=== PATIENT | male | born 1955 | race Caucasian/White ===

== ENCOUNTER 2017-05-20 14:41 | Inpatient (IN) | payer OTHER ==
[~2017-05-20] VITALS: Ht 180.3 cm; Wt 76.2 kg
[2017-05-20] MEDS ORDERED: ATENOLOL50 MG (15:09)
== END 2017-06-14 13:33 | disposition home or self-care (01) | DRG 653 ==
LOC: ER 14:41 → ICU 20:21 → SURG 20:21 → SEC-K 20:21 → SURG 05-21 09:50 → O/R 05-23 19:15 → ICU 05-24 10:22 → SURG 05-26 20:47
PROVIDERS: Urology
PROC: 30233N1 Transfusion of Nonautologous Red Blood Cells into Peripheral Vein, Percutaneous Approach (ICD-10-PCS; 2017-05-20)
PROC: 0VT00ZZ Resection of Prostate, Open Approach (ICD-10-PCS; 2017-05-23)
PROC: 07TC0ZZ Resection of Pelvis Lymphatic, Open Approach (ICD-10-PCS; 2017-05-23)
PROC: 0T1 Urinary System, Bypass (ICD-10-PCS; 2017-05-23)
PROC: 0DTJ0ZZ Resection of Appendix, Open Approach (ICD-10-PCS; 2017-05-23)
PROC: 0TB70ZZ Excision of Left Ureter, Open Approach (ICD-10-PCS; 2017-05-23)
PROC: 0TB60ZZ Excision of Right Ureter, Open Approach (ICD-10-PCS; 2017-05-23)
PROC: 4A033R1 Measurement of Arterial Saturation, Peripheral, Percutaneous Approach (ICD-10-PCS; 2017-05-23)
PROC: 3E0F7GC Introduction of Other Therapeutic Substance into Respiratory Tract, Via Natural or Artificial Opening (ICD-10-PCS; 2017-05-23)
PROC: 0TRB07Z Replacement of Bladder with Autologous Tissue Substitute, Open Approach (ICD-10-PCS; principal; 2017-05-23 13:45)
PROC: 5A1935Z Respiratory Ventilation, Less than 24 Consecutive Hours (ICD-10-PCS; 2017-05-24)
PROC: 0BH17EZ Insertion of Endotracheal Airway into Trachea, Via Natural or Artificial Opening (ICD-10-PCS; 2017-05-24)
PROC: BW24Y0Z Computerized Tomography (CT Scan) of Chest and Abdomen using Other Contrast, Unenhanced and Enhanced (ICD-10-PCS; 2017-05-25)
PROC: B246ZZZ Ultrasonography of Right and Left Heart (ICD-10-PCS; 2017-05-26)
PROC: BW21Y0Z Computerized Tomography (CT Scan) of Abdomen and Pelvis using Other Contrast, Unenhanced and Enhanced (ICD-10-PCS; 2017-05-31)
PROC: 3E0436Z Introduction of Nutritional Substance into Central Vein, Percutaneous Approach (ICD-10-PCS; 2017-06-02)
PROC: 02HV33Z Insertion of Infusion Device into Superior Vena Cava, Percutaneous Approach (ICD-10-PCS; 2017-06-02)
PROC: BW2GY0Z Computerized Tomography (CT Scan) of Pelvic Region using Other Contrast, Unenhanced and Enhanced (ICD-10-PCS; 2017-06-08)
DX: C67.3 Malignant neoplasm of anterior wall of bladder (principal); J95.821 Acute postprocedural respiratory failure; D62 Acute posthemorrhagic anemia; C77.5 Secondary and unspecified malignant neoplasm of intrapelvic lymph nodes; K35.89 Other acute appendicitis; K91.31 Postprocedural partial intestinal obstruction; N13.39 Other hydronephrosis; R31.0 Gross hematuria; F17.210 Nicotine dependence, cigarettes, uncomplicated; J44.9 Chronic obstructive pulmonary disease, unspecified; I10 Essential (primary) hypertension; Z78.1 Physical restraint status

== ENCOUNTER → 2017-12-26 | Outpatient (CLI) | payer OTHER ==
[~2017-12-26] MED LIST: ATENOLOL50 MG
== END | disposition home or self-care (01) ==
LOC: TOM 14:51 → LAB 14:51 → TOM 12-29 08:45
DX: C67.3 Malignant neoplasm of anterior wall of bladder (principal); Z51.81 Encounter for therapeutic drug level monitoring

== ENCOUNTER 2017-12-29 09:13 | Outpatient (CLI) | payer OTHER | END 2017-12-29 09:38 | disposition home or self-care (01) | LOC: TOM 09:13 | DX: C67.3 Malignant neoplasm of anterior wall of bladder (principal) ==

== ENCOUNTER 2018-07-22 09:48 | Outpatient (CLI) | payer OTHER | END 2018-07-22 09:56 | disposition home or self-care (01) | LOC: SONOGRAMA 09:48 → MAMO-SONO 10:15 | DX: C67.9 Malignant neoplasm of bladder, unspecified (principal); N31.9 Neuromuscular dysfunction of bladder, unspecified ==

== ENCOUNTER 2019-05-02 10:05 | Outpatient (CLI) | payer OTHER | END 2019-05-02 10:55 | disposition home or self-care (01) | LOC: TOM 10:05 | DX: C67.8 Malignant neoplasm of overlapping sites of bladder (principal); R31.0 Gross hematuria ==

== ENCOUNTER 2019-06-04 05:15 | Day surgery (SDC) | payer OTHER ==
[~2019-06-04 05:15] MED LIST changes: +ALTACE10 MG PO
== END 2019-06-04 14:10 | disposition home or self-care (01) ==
LOC: CIR.AMB 05:15
DX: C7A.093 Malignant carcinoid tumor of the kidney (principal)

== ENCOUNTER 2019-06-21 13:26 | Outpatient (CLI) | payer OTHER | END 2019-06-21 13:57 | disposition home or self-care (01) | LOC: NUCLEAR 13:26 | DX: C67.8 Malignant neoplasm of overlapping sites of bladder (principal); R31.1 Benign essential microscopic hematuria; N13.6 Pyonephrosis | CPT/HCPCS: 78708; A9539; J1940 ==

== ENCOUNTER 2019-07-25 09:00 | Inpatient (IN) | payer OTHER ==
[~2019-07-25] VITALS: Ht 180.3 cm; Wt 92.1 kg
[2019-07-25] MEDS ORDERED: ACTIFED PO (10:43)
[2019-07-31] MEDS ORDERED: WAL-ACT TABLET1 EACH PO (10:20)
== END 2019-08-07 09:24 | disposition home or self-care (01) | DRG 656 ==
LOC: O/R 07-30 06:00 → SURH 07-30 07:30 → O/R 07-30 09:00 → ICU 07-31 12:32 → SURH 08-01 14:07
PROVIDERS: ADMIT Urology
PROC: 0TB74ZZ Excision of Left Ureter, Percutaneous Endoscopic Approach (ICD-10-PCS; 2019-07-30)
PROC: 0DH67UZ Insertion of Feeding Device into Stomach, Via Natural or Artificial Opening (ICD-10-PCS; 2019-07-30)
PROC: 3E0G76Z Introduction of Nutritional Substance into Upper GI, Via Natural or Artificial Opening (ICD-10-PCS; 2019-07-30)
PROC: 0BH17EZ Insertion of Endotracheal Airway into Trachea, Via Natural or Artificial Opening (ICD-10-PCS; 2019-07-30)
PROC: 5A1935Z Respiratory Ventilation, Less than 24 Consecutive Hours (ICD-10-PCS; 2019-07-30)
PROC: 0TT14ZZ Resection of Left Kidney, Percutaneous Endoscopic Approach (ICD-10-PCS; principal; 2019-07-30 07:30)
PROC: 4A033R1 Measurement of Arterial Saturation, Peripheral, Percutaneous Approach (ICD-10-PCS; 2019-07-31)
DX: C65.2 Malignant neoplasm of left renal pelvis (principal); J95.822 Acute and chronic postprocedural respiratory failure; E87.2 Acidosis; J44.1 Chronic obstructive pulmonary disease with (acute) exacerbation; K56.0 Paralytic ileus; R50.82 Postprocedural fever; N28.89 Other specified disorders of kidney and ureter; I10 Essential (primary) hypertension; Z95.828 Presence of other vascular implants and grafts

== ENCOUNTER 2019-08-31 10:34 | Outpatient (CLI) | payer OTHER ==
[~2019-08-31 10:34] MED LIST changes: +ACTIFED PO; +WAL-ACT TABLET1 EACH PO
== END 2019-08-31 10:45 | disposition home or self-care (01) ==
LOC: LAB 10:34
DX: C65.2 Malignant neoplasm of left renal pelvis (principal); C61 Malignant neoplasm of prostate; C67.8 Malignant neoplasm of overlapping sites of bladder; R31.1 Benign essential microscopic hematuria

== ENCOUNTER 2019-08-31 11:00 | Outpatient (CLI) | payer OTHER | END 2019-08-31 11:15 | disposition home or self-care (01) | LOC: MRI 11:00 | DX: R31.1 Benign essential microscopic hematuria (principal); C65.2 Malignant neoplasm of left renal pelvis; C67.9 Malignant neoplasm of bladder, unspecified | CPT/HCPCS: 72197; 74183 ==

== ENCOUNTER 2019-09-02 11:56 | Outpatient (CLI) | payer OTHER | END 2019-09-02 12:08 | disposition home or self-care (01) | LOC: LAB 11:56 | DX: C65.2 Malignant neoplasm of left renal pelvis (principal); C67.9 Malignant neoplasm of bladder, unspecified; C61 Malignant neoplasm of prostate; R31.1 Benign essential microscopic hematuria ==

== ENCOUNTER 2020-08-05 05:14 | Inpatient (IN) | payer OTHER ==
[~2020-08-05] VITALS: Ht 180.3 cm; Wt 86.2 kg
[2020-08-05] MEDS ORDERED: AMLODIPINE BESYL5 MG (05:24)
== END 2020-08-12 10:05 | disposition home or self-care (01) | DRG 369 ==
LOC: ER 05:14 → MEDI 16:32 → SEC-K 16:32 → MEDI 17:38
PROVIDERS: ADMIT Internal Medicine; ATTEND Internal Medicine
PROC: 0DB58ZX Excision of Esophagus, Via Natural or Artificial Opening Endoscopic, Diagnostic (ICD-10-PCS; principal; 2020-08-07)
DX: K20.91 Esophagitis, unspecified with bleeding (principal); K92.0 Hematemesis; K92.2 Gastrointestinal hemorrhage, unspecified; K44.9 Diaphragmatic hernia without obstruction or gangrene; C65.2 Malignant neoplasm of left renal pelvis; I12.9 Hypertensive chronic kidney disease with stage 1 through stage 4 chronic kidney disease, or unspecified chronic kidney disease; N18.9 Chronic kidney disease, unspecified; F17.200 Nicotine dependence, unspecified, uncomplicated

== ENCOUNTER 2021-09-07 13:59 | Outpatient (CLI) | payer OTHER ==
[~2021-09-07 13:59] MED LIST changes: +AMLODIPINE BESYL5 MG
== END 2021-09-07 14:12 | disposition home or self-care (01) ==
LOC: RAD 13:59
PROVIDERS: ATTEND Family Medicine
DX: J45.909 Unspecified asthma, uncomplicated (principal)

== ENCOUNTER 2024-09-04 13:04 | Outpatient (CLI) | payer OTHER | END 2024-09-04 13:07 | disposition home or self-care (01) | LOC: RAD 13:04 | PROVIDERS: ATTEND Urology | DX: N20.0 Calculus of kidney (principal) ==

== ENCOUNTER 2024-10-16 14:39 | Outpatient (CLI) | payer OTHER | END 2024-10-16 14:40 | disposition home or self-care (01) | LOC: SONOGRAMA 14:39 | PROVIDERS: ATTEND Urology | DX: N30.00 Acute cystitis without hematuria (principal); R31.1 Benign essential microscopic hematuria ==

== ENCOUNTER 2024-12-18 15:20 | Outpatient (CLI) | payer OTHER | END 2024-12-18 15:31 | disposition home or self-care (01) | LOC: SONOGRAMA 15:20 | PROVIDERS: ATTEND Urology | DX: C67.9 Malignant neoplasm of bladder, unspecified (principal) ==